=== PATIENT | male | born 1955 | race African-American/Black ===

== ENCOUNTER 2024-06-15 08:36 | Day surgery (SDC) | payer OTHER ==
[2024-06-13 14:30] VITALS: BMI 32.3
[~2024-06-15 08:36] MED LIST: EPINEPHrine 0.3 MG in Ophthalmic Irrigation Solution 500 ML IRR SCH
[2024-06-15] MEDS ORDERED: Midazolam HCl 2 mg/2 ml Vial ONE (08:57)
[2024-06-15] MEDS ORDERED: Cyclopentolate 1% Opth Drop 2 ML BOT ONE (09:00)
[2024-06-15] MEDS ORDERED: PHENYLephrine 2.5% Ophth Soln 15 ml Bottle ONE (09:00)
[2024-06-15] MEDS ORDERED: Triamcinolone 40 MG/ML VIAL ONE (10:02)
[2024-06-15] MEDS ORDERED: Ondansetron PF 4 MG/2 ML Vial ONE (10:02)
[2024-06-15] MEDS ORDERED: Bupivacaine 0.75% 10 ML VIAL ONE (10:02)
[2024-06-15] MEDS ORDERED: PROPOFOL 200 MG/20 ML VIAL ONE (10:02)
[2024-06-15] MEDS ORDERED: Lidocaine 1% PF 5 ML VIAL ONE (10:02)
[2024-06-15] MEDS ORDERED: Lidocaine 4% PF 5 ML AMP ONE (10:02)
[2024-06-15] MEDS ORDERED: CEFAZOLIN 1 GM VIAL ONE (10:02)
[2024-06-15] MEDS ORDERED: Indocyanine Green 25 MG/10 ML VIAL ONE (10:02)
[2024-06-15] MEDS ORDERED: Maxitrol 0.1% Opth Oint 3.5 GM TUBE ONE (10:02)
[2024-06-15] MEDS ORDERED: fentaNYL PF 100 MCG/2 ML SYRINGE ONE (11:45)
== END 2024-06-15 12:59 | disposition home or self-care (01) ==
LOC: SDC 08:36
PROVIDERS: ATTEND Ophthalmology Retina Specialist
PROC: 08T43ZZ Resection of Right Vitreous, Percutaneous Approach (ICD-10-PCS; principal; 2024-06-15)
DX: H35.341 Macular cyst, hole, or pseudohole, right eye (principal)
CPT/HCPCS: 67025; 67042; J0171; J0690; J2250; J2405; J2704; J3301; J3490